=== PATIENT | female | born 1965 | race Caucasian/White ===

== ENCOUNTER → 2020-05-05 | Outpatient (CLI) | payer OTHER ==
[~2020-05-05] MED LIST: APPLE CIDER VI300 MG PO; CALCIUM500 MG PO; CLARITIN10 M3 PO; CURCUMIN10 GM PO; FISH OIL 1,201200 MG PO; FLONASE 0.05%50 MCG NARES; GLUCOSAMINE &1 EACH PO; KLOR-CON 10 ER10 MEQ PO; MAGNESIUM400 MG PO; PROBIOTIC1 EAC2 PO; SENNA PLUS TAB1 EACH PO; TURMERIC500 M2 PO; VITAMIN B COMP1 EACH PO; VITAMIN C1000 MG PO; VITAMIN D350 MC3 PO; VITAMIN E400 UNI6 PO
== END ==
LOC: LAB 09:34
PROVIDERS: ATTEND Orthopaedic Surgery
DX: Z01.812 Encounter for preprocedural laboratory examination (principal); Z20.828 Contact with and (suspected) exposure to other viral communicable diseases

== ENCOUNTER 2020-05-10 10:28 | Day surgery (SDC) | payer OTHER ==
[2020-05-05 13:25] LABS: HEMATOCRIT 46.5 % (37.0-47.0); HEMOGLOBIN 15.6 gm/dL (12.0-15.0); MCH 29.8 pg (26.0-34.0); MCHC 33.6 g/dL (28.0-37.0); MCV 88.8 fL (80.0-100.0); RBC 5.23 mil/uL (4.20-5.00); RDW 13.4 % (10.5-14.5); WBC 8.8 thou/uL (4.0-11.0)
[2020-05-05 13:28] LABS: URINE BILIRUBIN NEGATIVE (Negative); URINE BLOOD 2+ (Negative); URINE CLARITY CLEAR; URINE COLOR YELLOW; URINE GLUCOSE-RANDOM* NEGATIVE (Negative); URINE KETONES NEGATIVE (Negative); URINE LEUKOCYTES-REFLEX NEGATIVE (Negative); URINE NITRITE-REFLEX NEGATIVE (Negative); URINE PROTEIN (DIPSTICK) NEGATIVE (Negative); URINE SPECIFIC GRAVITY <= 1.005 (1.005-1.035); URINE UROBILINOGEN 0.2 E.U./dl (0.2-1.0)
[2020-05-05 13:33] LABS: ALBUMIN 4.4 g/dL (3.4-5.0); CALCIUM 9.9 mg/dL (8.5-10.1); CREATININE 0.8 mg/dL (0.6-1.0); POTASSIUM 4.3 mmol/L (3.5-5.1)
[2020-05-05 13:45] LABS: BACTERIA-REFLEX 1-9 Few /HPF (None Seen); CASTS None Seen /LPF (None Seen); CRYSTALS None Seen /LPF (None Seen); SQUAMOUS 0-3 Few /LPF (0-3); URINE RBC 0-2 Rare /HPF (0-2); URINE WBC-REFLEX 0-5 Rare /HPF (0-5)
[2020-05-05 13:47] LABS: PROTIME 10.5 Seconds (9.3-11.4)
[~2020-05-10] VITALS: Ht 167.6 cm; Wt 117.9 kg
[2020-05-10 11:31] VITALS: BP 128/69
--- NOTE | 2020-05-10 21:26 | NUR ---
PATIENT ADMITTED FROM OR WITH TOTAL KNEE REPLACEMENT, MINOO DRESSING, TONI HOSE, AND SCD'S AND POLAR CARE IN PLACE. PATIENT ALERT AND ORIENTED X 4. PATIENT C/O MILD PAIN AT THIS TIME. PATIENT DENIES NAUSEA, DINNER TRAY ORDERED. PATIENT HAS LEFT FOREARM IV IN PLACE, IV FLUIDS STARTED. ADMISSION COMPLETED, REPORT GIVEN TO YESSICA/RN.
[2020-05-10 21:31] VITALS: BP 91/47
[2020-05-11 01:03] VITALS: BP 135/56
--- NOTE | 2020-05-11 03:26 | NUR ---
PT AOX4. PT REPORTS 2/10 PAIN IN RIGHT KNEE. PT DENIES SOB WHILE ALTERNATING BETWEEN ROOM AIR AND 2L O2 VIA NC. PT RECEIVING SCHEDULED PO MORPHINE. PT AMBULATED TO BEDSIDE COMMODE WITH X1 ASSIST, GAIT BELT AND WALKER. PT NOTED TO HAVE WEAKNESS AND NUMBNESS IN RLE, RIGHT LEG BUCKLED WITH AMBULATION. PROVIDED EDUCATION TO PT IN REGARDS TO SAFE AMBULATION POSTOP WHILE MAINTAINING ERGONOMICS. PT TOLERATING PO INTAKE OF FLUIDS AND REGULAR DIET WITHOUT ISSUE. PT DENIES NAUSEA AND VOMITTING, SCOPALAMINE PATCH REMAINS IN PLACE BEHIND LEFT EAR. PT RESTING IN BED THROUGHOUT SHIFT, FREQUENT REPOSITIONING ENCOURAGED, PT NOTED TO SHIFT INDEPENDENTLY WHILE IN BED. PT ENCOURAGED TO NOTIFY STAFF FOR ALL NEEDS, CALL LIGHT WITHIN REACH, BED ALARM ON, BED IN LOWEST POSITION, FREQUENT MONITORING WILL CONTINUE.
[2020-05-11 04:39] VITALS: BP 114/54
[2020-05-11 05:40] LABS: HEMATOCRIT 41.4 % (37.0-47.0); HEMOGLOBIN 13.9 gm/dL (12.0-15.0); MCH 29.9 pg (26.0-34.0); MCHC 33.5 g/dL (28.0-37.0); MCV 89.3 fL (80.0-100.0); RBC 4.64 mil/uL (4.20-5.00); WBC 14.9 thou/uL (4.0-11.0)
[2020-05-11 08:45] VITALS: BP 102/54
--- NOTE | 2020-05-11 09:07 | NUR ---
ASSESSMENT: CM REVIEWED CHART AND MET WITH PATIENT AT THE BEDSIDE. PT IS ALERT AND ORIENTED X4. PT IS S/P R UKA. PT REPORTS THAT SHE LIVES AT HOME WITH HER AND DAUGHTER WHO IS 17. SHE REPORTS HAVING 2 STEPS TO ENTER AND 14-16 STEPS WITH HANDRAILS TO HER BEDROOM. PT REPORTS SHE HAS A WALKER AT HOME. PT STATES SHE HAS OUTPATIENT THERAPY ARRANGED AT [facility] TOMORROW FOR 4PM. PT DOES NOT ANTICIPATE HAVING ANY NEEDS FROM CM. PT IS TO WORK WITH THERAPY TODAY AND POSSIBLE DISCHARGE HOME.
--- NOTE | 2020-05-11 10:48 | NUR ---
Assumed care of pt at 0700. Pt a&ox4. Pain controlled with prn pain meds. Dressing c/d/i. Pt will work with physical therapy. Polar care in place. Scopolamine paich in place. Up with SBA with walker and gaitbelt. Fall precautions in place. Will continue to monitor.
[2020-05-11] MEDS ORDERED: TRANSDERM-SCOP1 EACH TRANSDERM (16:15)
[2020-05-11 19:45] VITALS: BP 122/80
--- NOTE | 2020-05-12 03:21 | NUR ---
ASSUMED CARE OF PT AT 1900. PT IS A/O X4 AND IS UP WITH ASSIST TO THE BR WITH GB AND WALKER. DRSG TO R KNEE IS C/D/I. POLAR PACK, AND SCD'S ARE IN PLACE. C/O PAIN. PRN PAIN MEDICATION GIVEN DIRECTED. VSS. FALL PRECAUTIONS ARE IN PLACE, CALL LIGHT IS WITHIN REACH. WILL CONTINUE TO MONITOR.
[2020-05-12 04:54] LABS: HEMATOCRIT 39.2 % (37.0-47.0); HEMOGLOBIN 13.2 gm/dL (12.0-15.0); MCHC 33.7 g/dL (28.0-37.0); MCV 88.9 fL (80.0-100.0); RBC 4.4 mil/uL (4.20-5.00); WBC 11.9 thou/uL (4.0-11.0)
[2020-05-12 05:45] VITALS: BP 124/52
[2020-05-12 07:20] VITALS: BP 112/51
--- NOTE | 2020-05-12 09:34 | NUR ---
ON-GOING ASSESSMENT: PT IS CONTINUING WITH THERAPY. SHE HAS A WALKER AT HOME BUT GOT IT FROM [employer] AND IS A SMALL YOUTH WALKER. PT IS NEEDING A WALKER FOR HOME. PT REPORTS NO PREFERENCE OF [employer]. CM REACHED OUT TO PROVID[facility] [employer]. AWAITING RESPONSE AT THIS TIME. PT WILL DISCHARGE LATER TODAY AND DO OUTPATIENT THERAPY.
[2020-05-12 09:46] VITALS: BP 112/51
--- NOTE | 2020-05-12 10:50 | NUR ---
Assumed care of pt at 0700. Pt a&ox4. Worked with physical therapy. Walker delivered to room. Polar care in place. SCDs in place. Pain controlled with prn pain meds. No nausea. Dressing c/d/i. Call light within reach. Fall precautions in place. Will continue to monitor.
[2020-05-12 13:47] VITALS: BP 112/51
--- NOTE | 2020-05-15 14:11 | O ---
[facility] [place] [address] OPERATIVE REPORT Name: RICHMOND FISHMAN Room #: DEP [facility]#: [id number] Admission: 05/10/20 Attend Phys: Malik Garcia MD Discharge: 05/12/20 Date of : 69 Report #: [id number] THIS REPORT FOR: cc: PETRA BRO MD Physician not on staff Malik Garcia MD ~ DATE OF SERVICE: 05/10/2020 PREOPERATIVE DIAGNOSIS: Right knee medial compartment knee osteoarthritis. POSTOPERATIVE DIAGNOSIS: Right knee medial compartment knee osteoarthritis. PROCEDURE: Right unicompartmental knee arthroplasty using Navio robotic personnel assistant. SURGEON: Malik Garcia MD SENIOR WEB APPLICATIONS DEVELOPER: Kat Rodríguez PA-C INDICATIONS FOR SENIOR WEB APPLICATIONS DEVELOPER: Throughout the case, extensive retraction and manipulation of the knee was required. This was afforded to me by my personnel assistant. ANESTHESIA: LMA with an adductor canal block. IMPLANTS: [employer] size 3 Journey II BCS medial femoral component, a size 1 tibia and a size 9 polyethylene. TOURNIQUET TIME: 47 minutes. ESTIMATED BLOOD LOSS: 25 mL. COMPLICATIONS: None. SPECIMENS: None. CONDITION UPON LEAVING THE OPERATING ROOM: Stable. INDICATIONS FOR PROCEDURE: The patient is a 55-year-old female with right knee medial compartment knee arthritis. She had failed conservative measures for this and after discussion with her, she elected for medial compartment knee arthroplasty. DESCRIPTION OF PROCEDURE: Risks, benefits, alternatives, and complications were discussed in detail with the patient including but not limited to risk of anesthesia, risk of damage to nerves, arteries, blood vessels, risk for [facility] [address] [place] [address] OPERATIVE REPORT Name: RICHMOND FISHMAN Room #: DEP [facility] M..#: [id number] Admission: 05/10/20 Attend Phys: Malik Garcia MD Discharge: 05/12/20 Date of : 69 Report #: [id number] infection, bleeding, risk for continued knee pain, need for reoperation. Informed consent was obtained from the patient. The right knee was appropriately marked in the preoperative holding area. IV Ancef was given for preoperative antibiotics. Adductor canal block was placed by Anesthesia. She was brought to the operating room and placed in supine position on the operating room table. LMA anesthesia was induced without complication. Tourniquet was placed on the right thigh. Right lower extremity was prepped and draped in normal sterile fashion. Timeout was performed properly identifying the patient and procedure as well as the instrumentation and implants. All in the operating room were in agreement. Right lower extremity was exsanguinated, tourniquet was inflated. Tourniquet time was 47 minutes. Standard approach to the medial knee was made with 10 blade through the skin. Dissection was taken down sharply to the fascia and deep flaps were developed medially and laterally. Fresh 10 blade was used to make a medial parapatellar arthrotomy and the knee was inspected. There was severe medial compartment osteoarthritis. Patellofemoral compartment was well maintained. Lateral compartment demonstrated normal articular surfaces. ACL was intact. It was decided to proceed with medial compartment arthroplasty. Reference pins were placed in the femur and the tibia and the knee was then digitally mapped using Modulus robotic system. Intraoperative plan was made and we sized the size 3 femur with a size 1 tibia and a 9 spacer. After acceptance of the intraoperative plan, the femoral and tibial resections were made with a Navio bur. The remainder of the medial meniscus was removed with Bovie cautery. Tibia was sized, found to be a size 1. A size 1 tibial trial was placed, pinned and drilled. A size 3 femoral trial was placed. This was then trialed with a size 9 polyethylene. Knee was taken through range of motion, found to have 1-2 mm of laxity medially throughout range of motion of the knee. Trial components were removed. Bony ends were thoroughly irrigated with normal saline. A final size 1 tibia, size 3 medial Journey II BCS Oxinium femur were cemented in place using standard cementation techniques. While the cement cured, a periarticular injection consisting of morphine, ropivacaine, epinephrine, Toradol was placed around the knee joint capsule. After the cement cured, tourniquet was deflated. Hemostasis was obtained with Bovie cautery. A final size 9 polyethylene was placed. A gram of vancomycin was placed deep in the joint. Fascia was closed with 0 Vicryl, skin was closed with 2-0 Vicryl, skin staple and a MINOO dressing was applied. The patient tolerated this procedure well and went to recovery room under care of anesthesia postoperatively. <ELECTRONICALLY SIGNED> By: Malik Garcia MD 05/15/20 1411 1530 [id number] Malik Garcia MD /getachew
== END 2020-05-12 14:44 | disposition home or self-care (01) ==
LOC: OR 10:28 → 4S 16:45 → OR 05-12 14:44
PROVIDERS: ATTEND Orthopaedic Surgery
DX: M17.11 Unilateral primary osteoarthritis, right knee (principal); M25.561 Pain in right knee; Z98.890 Other specified postprocedural states; Z79.899 Other long term (current) drug therapy; Z88.8 Allergy status to other drugs, medicaments and biological substances
CPT/HCPCS: 10102; 50010; 50101; 50415; 50954; 51130; 51225; 51320; 51412; 53000; 53078; 53370; 56527; 56528; 57095; 57103; 57110; 57127; 57180; 62110; 62900; 64039; 64043; 70005